=== PATIENT | male | born 1960 | race Caucasian/White ===

== ENCOUNTER 2019-10-22 12:58 | Emergency (ER) | payer OTHER, SELFPAY ==
--- NOTE | 2019-10-22 13:32 | ED.SKABFB ---
HPI - Skin/Abscess/Foreign Bdy General Chief complaint: Wound/Laceration Stated complaint: infection in R leg Time Seen by Provider: 10/22/19 13:32 Source: patient Mode of arrival: ambulatory Limitations: no limitations History of Present Illness complaint: insect bite/sting (Unsure) Onset (ago): day(s) (3) Location: RLE Severity: mild Quality: burning Pain Consistency: constant Relieving factors: none Exacerbating factors: none Associated symptoms: denies other symptoms Treatments prior to arrival: none Related Data Allergies Allergy/AdvReac Type Severity Reaction Status Date / Time No Known Drug Allergies Allergy Unknown Verified 05/22/19 07:54 Review of Systems Review of Systems: All systems reviewed & are unremarkable except as noted in HPI and below PMFSH Surgical History Surgical History (Updated 10/22/19 @ 13:55 by Fidel Lindsay MD) History of hernia surgery (Acute) Family History Family History (Updated 07/21/14 @ 07:13 by DOCTOR UNKNOWN) Mother Family history of coronary artery disease Social History Social History Smoking status: Never smoker Alcohol intake: current Exam Const: General: healthy appearing, no acute distress and alert Nutritional Appearance: well nourished Orientation/consciousness: oriented x3 HENMT: Head: normal to inspection Face and sinus: normal facial exam Mouth: Yes lip normal Eyes: Conjunctivae: conjunctivae normal Pupils: PERRL EOM: EOM intact bilaterally Neck: Neck: normal visual inspection Resp: Effort & Inspection: normal respiratory effort Auscultation: clear to auscultation bilaterally Cardio: Rate: regular rate Rhythm: regular rhythm Heart sounds: no murmurs GI: Palpation (GI): Yes soft and No tender Auscultation: normal bowel sounds Skin: General skin exam: normal color Lesions: lesion noted pustule right lateral lower leg size (4 cm), color beefy, consistency soft and fluctuant, morphology, surface indurated, warm, with discharge and with an erythematous base and tender Neuro: General: oriented x3, moves all extremities and no focal motor deficits Speech: normal speech Course Vital Signs Vital signs: Vital Signs Temperature 37.1 C 10/22/19 13:34 Pulse Rate 84 10/22/19 13:34 Respiratory Rate 18 10/22/19 13:34 Blood Pressure 162/96 H 10/22/19 13:34 Pulse Oximetry 97 10/22/19 13:34 Temperature 37.1 C 10/22/19 13:34 Pulse Rate 84 10/22/19 13:34 Respiratory Rate 18 10/22/19 13:34 Blood Pressure 162/96 H 10/22/19 13:34 Pulse Oximetry 97 10/22/19 13:34 Procedures Abscess I/D lower extremity: Date of Incision: 10/22/19 Time of Incision: 13:45 Side (if applicable): right Sedation/analgesia: none Local Anesthetic: lidocaine 1% and with epi Amount of anesthesia used (mL): 4 Technique: incised with #11 blade Irrigation: No Packing used?: none I&D Results: Pus MDM - Skin/Abscess/Foreign Bdy Differential Diagnosis Differential diagnosis: Likely abscess of skin or subcutaneous tissue and insect bites Medical Records Attestation: I reviewed the patient's medical records. Discharge Plan Discharge Clinical Impression: Abscess Patient Disposition: Home, Self-Care Condition: Stable Instructions: Antibiotic Form, Insect Bite or Sting (ED), Abscess (ED) Additional Instructions: Follow up with her primary care if not improved in 4 days. Change dressing daily. Prescriptions: New sulfamethoxazole-trimethoprim [Bactrim DS] 800-160 mg tablet 2 tablet PO Q12H 14 Days Qty: 56 RF: 0 Follow-up/Referrals: Rakesh Hebert MD [Primary Care Provider] - Time of Disposition: 14:10 Discharge Date/Time: 10/22/19 14:19
[2019-10-22 13:34] VITALS: BP 162/96; PULSE 84; RESP 18; TEMP 37.1; O2SAT 97
== END 2019-10-22 14:19 | disposition home or self-care (01) ==
PROVIDERS: Emergency Provider Emergency Medicine; PCP Family Medicine
DX: L02.415 Cutaneous abscess of right lower limb (principal)
CPT/HCPCS: 10060; 87070; 87077; 87186; 87205; 99283

== ENCOUNTER 2020-09-30 04:20 | Emergency (ER) | payer OTHER, SELFPAY ==
--- NOTE | ~2020-09-30 | XR_ITS ---
EXAMINATION: XR ankle RT min 3V INDICATION: Right ankle pain TECHNIQUE: Four views of the right ankle are obtained. COMPARISON: None available FINDINGS: No fracture is identified. Bone alignment is normal. Dorsal and plantar calcaneal enthesoph ytes are present. There is calcified atherosclerosis. IMPRESSION: 1. No acute osseous abnormality. Reviewed, dictated and finalized at location A. D ADVOCATE
[2020-09-30 04:31] VITALS: BP 120/80; PULSE 80; RESP 18; TEMP 36.4; O2SAT 96
--- NOTE | 2020-09-30 04:38 | PC.NURSE ---
PATIENT arrived 330am, Drove self & walked in--states hurt so bad at work couldn't take pain. 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 patient on cell phone laughing & talking.
[2020-09-30] MEDS: HYDROcodone/acetaminophen (*CRX) 5-325 MG TABLET 1 TAB PO (05:13)
[2020-09-30] MEDS: KETOROLAC (*BKC) 60 MG/2 ML VIAL IM (05:14)
--- NOTE | 2020-09-30 05:53 | ED.GENADULT ---
HPI - General Adult General Chief complaint: Unspecified Stated complaint: 60 YO male w/ 3 day onset on right heel PAIN. Denies rauma or injury Related Data Allergies Allergy/AdvReac Type Severity Reaction Status Date / Time No Known Drug Allergies Allergy Unknown Unknown Verified 10/29/19 11:06 Review of Systems Genitourinary: Genitourinary: Reports no additional male genitourinary complaints Musculoskeletal: Musculoskeletal: Reports as per HPI Integumentary/Breasts: Skin/Breast: Reports system reviewed and no additional complaints, except as docu Neurologic: Reports system reviewed and no additional complaints, except as documented Psychiatric: Psychiatric: Reports no additional psychiatric complaints [facility] Surgical History Surgical History History of hernia surgery Family History Family History Mother Family history of coronary artery disease Social History Social History Smoking status: Never smoker Second hand tobacco smoke exposure: No Alcohol intake: current Drinks per week: 2 Substance use: never Substance use type: does not use Gender identity (if verbalized by the patient): Male Exam Const: General: cooperative and healthy appearing Orientation/consciousness: oriented to person, oriented to place, oriented to time and patient oriented x3 HENMT: Head: normal to inspection Chest: Chest palpation & inspection: normal inspection of the chest Resp: Effort & Inspection: normal respiratory effort GI: Inspection: normal to inspection Extrem: General: normal to inspection, capillary refill normal and no calf tenderness Right lower extremity: ankle Details: achilles tendon exam abnormal Details: tenderness to palpation of achilles tendon Course Vital Signs Vital signs: Vital Signs Temperature 97.6 F 09/30/20 04:31 Pulse Rate 80 09/30/20 04:31 Respiratory Rate 18 09/30/20 04:31 Blood Pressure 120/80 09/30/20 04:31 Pulse Oximetry 96 09/30/20 04:31 Temperature 97.6 F 09/30/20 04:31 Pulse Rate 80 09/30/20 04:31 Respiratory Rate 18 09/30/20 04:31 Blood Pressure 120/80 09/30/20 04:31 Pulse Oximetry 96 09/30/20 04:31 Medical Decision Making Vital Signs Vital Signs: Vital Signs Temperature 97.6 F 09/30/20 04:31 Pulse Rate 80 09/30/20 04:31 Respiratory Rate 18 09/30/20 04:31 Blood Pressure 120/80 09/30/20 04:31 Pulse Oximetry 96 09/30/20 04:31 Temperature 97.6 F 09/30/20 04:31 Pulse Rate 80 09/30/20 04:31 Respiratory Rate 18 09/30/20 04:31 Blood Pressure 120/80 09/30/20 04:31 Pulse Oximetry 96 09/30/20 04:31 Critical Care Time Critical Care Time Critical Care Time: No Discharge Plan Discharge Clinical Impression: Achilles tendinitis of right lower extremity Patient Disposition: Home, Self-Care Condition: Improved Instructions: Antibiotic Form Additional Instructions: F/U with OMD in 2-3 days for steroid injection Prescriptions: New naproxen 500 mg tablet 500 mg PO BID PRN (Reason: pain) Qty: 20 RF: 0 Follow-up/Referrals: UNKNOWN,DOCTOR [Primary Care Provider] - Stand Alone Forms: Work/School Release IP Time of Disposition: 05:58
[2020-09-30 06:02] VITALS: BP 120/78; PULSE 70; RESP 18; TEMP 36.8; O2SAT 95
== END 2020-09-30 06:03 | disposition home or self-care (01) ==
PROVIDERS: Emergency Provider Family Medicine
DX: M76.61 Achilles tendinitis, right leg (principal)
CPT/HCPCS: 73610; 96372; 99283; A9270; J1885

== ENCOUNTER 2020-10-23 14:30 | Outpatient (CLI) | payer OTHER, SELFPAY ==
--- NOTE | ~2020-10-23 | XR_ITS ---
EXAMINATION: XR knee LT 3V DATE: 10/23/2020 14:55 INDICATION: Left knee pain. TECHNIQUE: 3 views of left knee were obtained. COMPARISON: None. FINDINGS: Bone alignment is normal. No fracture. There is mild osteoarthritis of medial and patellofe moral compartments. No knee joint effusion. IMPRESSION: 1. Mild left knee osteoarthritis. Reviewed, dictated and finalized at location A. 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
== END 2020-10-23 14:31 | disposition home or self-care (01) ==
PROVIDERS: PCP Family Medicine; Visit Provider Nurse Practitioner Family
DX: M17.11 Unilateral primary osteoarthritis, right knee (principal)
CPT/HCPCS: 73562

== ENCOUNTER 2021-08-27 06:08 | Observation (INO) | payer OTHER, SELFPAY ==
[2021-08-27] VITALS (30 sets, daily range): BP systolic 114–186; BP diastolic 66–109; PULSE 42–98; RESP 14–27; TEMP 36.4–36.9; O2SAT 91–100; BMI 29.9
--- NOTE | ~2021-08-27 | XR_ITS ---
XR chest 1V portable DATE: 08/27/2021 06:30 INDICATION: Chest pain, chest pressure for 2 days. TECHNIQUE: Portable upright AP chest on 08/2021 at 0621 hours COMPARISON: 02/22/2013 PA and lateral chest FINDINGS: Normal heart size. Mild aortic unfolding. No hilar or mediastinal enlargement is evident. The right cardiac margin is not well-defined, which might indicate middle lobe infiltrate or atelecta sis. PA and lateral chest radiographs are recommended. The lungs otherwise appear clear of infiltrate or consolidation. No pleural effusion or pulmonary vas cular congestion or pneumothorax. Degenerative spurring of the thoracic spine. IMPRESSION: Obscured right cardiac margin, which might indicate middle lobe infiltrate or atelectasis ; PA and lateral chest radiographs are recommended Reviewed, dictated and finalized at location A. IMPRESSION: Obscured right cardiac margin, which might indicate middle lobe inf iltrate or atelectasis; PA and lateral chest radiographs are recommended
--- NOTE | ~2021-08-27 | CT_ITS ---
EXAMINATION: CTA chest PE protocol DATE: 08/27/2021 09:02 INDICATION: Chest pain. Elevated d-dimer. TECHNIQUE: Computed tomography angiography (CTA) of the chest was performed with 100 mL Omnipaque-350 intravenous contrast timed to evaluate the pulmonary arteries. Coronal maximum intensity projection 3D-reconstructions were created by the technologist. Automated exposure control and iterative reconst ruction technique were employed. Exam dose: 714.78 mGy-cm total exam DLP. COMPARISON: 08/2021 portable AP chest FINDINGS: There is diagnostic contrast enhancement of the pulmonary arteries and no evidence of pulmo nary embolism. No thoracic aortic aneurysm or dissection. Heart size is within normal range. No pericardial or pleural effusion. No hilar or mediastinal mass lesion or lymphadenopathy. There is mild infiltrate or atelectasis in the medial paraspinal right lower lobe. The lungs are othe rwise clear. Normal morphology of the adrenal glands. Left parapelvic renal cysts. Small sliding hiatal hernia. Diffuse idiopathic skeletal hyperostosis of the T7-T10 thoracic spine. IMPRESSION: Mild infiltrate or atelectasis in the paraspinal medial right lower lobe No evidence of pulmonary embolism Reviewed, dictated and finalized at Location [facility]. Reviewed, dictated and finalized at location A. IMPRESSION: Mild infiltrate or atelectasis in the paraspinal medial right lowe r lobe No evidence of pulmonary embolism
--- NOTE | 2021-08-27 06:10 | ECG_ITS ---
Measurements Intervals [place] Rate: 92 P: 145 MS: 164 QRS: 197 QRSD: 127 T: 182 QT: 369 QTc: 458 Interpretive Statements SINUS RHYTHM ARM LEADS REVERSED INCOMPLETE RIGHT BUNDLE BRANCH BLOCK BORDERLINE R WAVE PROGRESSION, ANTERIOR LEADS BORDERLINE T WAVE ABNORMALITY- INFERIOR LEADS BORDERLINE ECG Electronically Signed On 08-27-2021 15:26:01 CDT by Otoniel Fink D.O.
[2021-08-27 06:41] LABS: Basophils Percent Auto 0.6 % (0.2-1.2); Eosinophils Absolute Auto 0.1 K/mm3 (0-0.3); Eosinophils Percent Auto 1.9 % (0-4.4); Hematocrit 45.7 % (42.0-52.0); Hemoglobin 15.8 g/dL (14.0-18.0); Immature Granulocyte Absolute 0.01 K/mm3 (0.00-0.031); Immature Granulocyte Percent A 0.2 % (0-0.5); Lymphocytes Absolute Auto 1.77 K/mm3 (0.9-3.2); Lymphocytes Percent Auto 37.5 % (18.3-44.2); Mean Corpuscular HGB Conc 34.6 g/dl (32-36); Mean Corpuscular Hemoglobin 31.7 pg (26-34); Mean Corpuscular Volume 91.8 fl (80-100); Mean Platelet Volume 9.3 fl (7.4-10.4); Monocytes Absolute Auto 0.4 K/mm3 (0.1-0.6); Monocytes Percent Auto 7.4 % (2.6-8.5); Neutrophils Absolute Auto 2.5 K/mm3 (1.3-6.7); Neutrophils Percent Auto 52.4 % (45.5-73.1); Platelet Count Result 251 k/mm3 (150-375); Red Blood Count 4.98 M/mm3 (4.6-6.20); Red Cell Distribution Width 12.4 % (11.5-14.5); White Blood Count 4.7 K/mm3 (4.5-10.0)
[2021-08-27 06:50] LABS: Alanine Aminotransferase 39 U/L (4-50); Albumin Level 4.7 g/dL (3.5-5.1); Alkaline Phosphatase 64 U/L (38-126); Anion Gap 11 mmol/L (8-16); Aspartate Amino Transferase 33 U/L (17-59); Bilirubin,Total 0.7 mg/dL (0.2-1.3); Blood Urea Nitrogen 19 mg/dL (9-20); Calcium 8.8 mg/dL (8.4-10.2); Carbon Dioxide 23 mmol/L (22-30); Chloride 103 mmol/L (98-107); Estimated CRCL calculation 81 ml/min; Estimated Glomerular Filt Rate > 60; Glucose 230 mg/dL (65-110); Lipase 117 U/L (23-300); Potassium 3.8 mmol/L (3.4-5.0); Sodium 137 mmol/L (137-145)
[2021-08-27 06:57] LABS: Prothrombin Time 12.6 Seconds (11.1-14.7)
[2021-08-27 06:58] LABS: Partial Thromboplastin Time 30.9 SECONDS (22.3-36.8)
[2021-08-27 07:01] LABS: Troponin I < 0.012 ng/mL (0.000-0.034)
--- NOTE | 2021-08-27 07:16 | PC.NURSE ---
pt using urinal at bedside. cp 04/02
--- NOTE | 2021-08-27 07:46 | ED.GENADULT ---
HPI - General Adult General Chief complaint: Chest Pain Stated complaint: Chest pain Time Seen by Provider: 08/27/21 07:05 Source: patient History of Present Illness HPI narrative: Patient is a 61 y/o male complaining of left sided chest pain starting 2 hours ago. He describes his pain as a pressure and rates it as 5/10. There is no alleviating or exacerbating factor. His pain radiates to left shoulder. 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 He also has some nausea, SOB and sweating feeling. He had a similar episode of chest pain yesterday which resolved a 2 hours. Related Data Home Medications Medication Instructions Recorded Confirmed No Home Medications 10/24/20 Allergies Allergy/AdvReac Type Severity Reaction Status Date / Time No Known Drug Allergies Allergy Unknown Unknown Verified 08/27/21 06:26 Review of Systems Constitutional: Constitutional: Denies chills, Reports excessive sweating, Denies fever(s), Denies headache(s) and Denies weakness Eyes: Eyes: Denies blurry vision ENT: Denies headache(s) and Denies neck pain Cardiovascular: Cardiovascular: Reports chest pain and Reports dyspnea Respiratory: Respiratory: Denies cough and Reports dyspnea Gastrointestinal: Gastrointestinal: Denies abdominal pain, Denies diarrhea, Reports nausea and Denies vomiting Genitourinary: Genitourinary: Denies hematuria and Denies dysuria Musculoskeletal: Musculoskeletal: Denies back pain and Denies neck pain Neurologic: Denies headache(s) and Denies weakness PMF Surgical History Surgical History History of hernia surgery Family History Family History Mother Family history of coronary artery disease Social History Social History Smoking status: Never smoker Second hand tobacco smoke exposure: No Alcohol intake: current Drinks per week: 2 Substance use: never Substance use type: does not use Gender identity (if verbalized by the patient): Male Exam Const: General: no acute distress and well developed Orientation/consciousness: oriented to person, oriented to place, oriented to time and patient oriented x3 HENMT: Head: normocephalic Ears: external ears normal General nose exam: Normal external nose present Eyes: General: appearance normal, both eyes and all related structures Conjunctivae: conjunctivae normal Neck: Neck: normal visual inspection and full ROM Chest: Chest palpation & inspection: normal inspection of the chest and no tenderness Resp: Effort & Inspection: normal respiratory effort Auscultation: clear to auscultation bilaterally Cardio: Rate: regular rate Rhythm: regular rhythm GI: GI Palp: No abdominal tenderness and Yes Soft to palpation Skin: General skin exam: normal color and turgor normal Neuro: General: oriented to person, oriented to place, oriented to time and patient oriented x3 Cognition (Neuro): normal cognition Extrem: General: normal to inspection, full ROM and no pedal edema Psych: Appearance: grossly normal Mental Status: mental status grossly normal Affect: normal affect Course Consultations Consultation #1: Discussed with Amanda (cardiology), who agrees to admit. Date: 08/27/21 Time: 11:42 Vital Signs Vital signs: Vital Signs Temperature 36.9 C 08/27/21 06:16 Pulse Rate 96 08/27/21 06:16 Respiratory Rate 20 08/27/21 06:16 Blood Pressure 186/109 H 08/27/21 06:16 Pulse Oximetry 96 08/27/21 06:16 Temperature 36.9 C 08/27/21 06:16 Pulse Rate 79 08/27/21 12:03 Respiratory Rate 17 08/27/21 11:45 Blood Pressure 131/86 08/27/21 08:16 Pulse Oximetry 97 08/27/21 11:45 Medical Decision Making Vital Signs Vital Signs: Vital Signs Temperature 36.9 C 08/27/21 06:16 Pulse Rate 96 08/27/21 06:16 Respiratory Rate 20 08/27/21 06:16
[2021-08-27 08:04] LABS: D Dimer 0.66 ug/mL (<0.48)
[2021-08-27 09:43] LABS: Troponin I < 0.012 ng/mL (0.000-0.034)
[2021-08-27] MEDS: METOPROLOL TARTRATE 50 MG TAB (12:03)
[2021-08-27] MEDS: ASPIRIN 81 MG CHEWABLE TABLET 324 MG PO (12:03)
[2021-08-27 13:04] LABS: Troponin I < 0.012 ng/mL (0.000-0.034)
--- NOTE | 2021-08-27 13:50 | ADMGEN ---
This patient, John Hernandez, [facility] Patient/family oriented to hospital policies and general routines including ID bracelet, bed and alarms, visiting hours, pain management, procedures, bathroom and other care routines, personal items, smoking policy, room service/diet, and visiting hours. Information on how to activate the Rapid Response Team has been discussed. Patient/Family are encouraged to report perceived risks to care and to ask questions if they do not understand what they are told or what they should do.
--- NOTE | 2021-08-27 14:35 | PM.CNCAR ---
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 Pain lasted a couple of hours and was relieved by rest. He had a recurrence of pain this morning while driving to work with some associated nausea. This prompted his presentation to the hospital. In the emergency department his initial troponin was negative an EKG did not have any acute ST or T-wave changes. He was given a full-dose aspirin. He was also given metoprolol as he was found to be hypertensive with a systolic blood pressure in the 180s. Currently he is not experiencing any chest pain. Serial troponins have been negative. He does have some risk factors for coronary disease including family history and age. Moderately suspicious sounding history. Will plan for exercise stress test tomorrow Check lipid panel Further recommendations to follow stress test OK to transfer to [facility] History of Present Illness History of Present Illness Consult date/time: 08/27/21 14:35 Requesting physician: Luzma Owen MD Consult reason: chest pain Reason For Visit: Chest pain Narrative: Mr. Hernandez is a patient who we are seeing at the request of Dr. Owen for chest pain. This is a 61-year-old male with no significant medical history who presented to the emergency room today following an episode of chest pain. He says that he was in his car driving to work when he began to experience some substernal chest pain. He says that he also felt nauseous at that time. He tells me that he also had some chest pain last night after he finished doing some tile work. He says that he has had similar experiences with chest discomfort following activity but has never been evaluated in the past. Last nights episode of chest discomfort lasted for a couple of hours and was about of 5/10 on a pain scale. He describes the pain is a tightness or heaviness. He did not do anything in particular to relieve the pain aside from rest. The pain does not radiate to his arm or jaw. He did have some shortness of breath last night but he thinks that this is related to the fact that he was exerting himself. Over the past several months he does note that he has been experiencing more fatigue/lack of energy. Today, his chest pain had nearly resolved by the time that he arrived to the emergency department. He is currently not experiencing any chest pain. He denies any history of heart problems or any type of cardiac workup. He also tells me that he does not regularly follow with a primary care doctor. Review of Systems Review of Systems: All systems reviewed & are unremarkable except as noted in HPI and below Constitutional: Constitutional: Reports fatigue, Reports lethargy and Denies weakness Eyes: Eyes: Denies change in vision ENT: Reports Normal hearing present Cardiovascular: Cardiovascular: Reports chest pain, Denies diaphoresis, Denies pedal edema, Denies leg edema, Denies lightheadedness and Denies palpitations Respiratory: Respiratory: Denies dyspnea and Reports dyspnea on exertion Gastrointestinal: Gastrointestinal: Denies melena and Denies hematochezia Genitourinary: Genitourinary: Denies dysuria Musculoskeletal: Musculoskeletal: Denies back pain and Denies neck pain Integumentary/Breasts: Skin/Breast: Denies wounds Neurologic: Denies headache(s) Psychiatric: Psychiatric: Denies anxiety and Denies depression Endocrine: Endocrine: Reports fatigue Hematologic/Lymphatic: Hematologic/Lymphatic: Denies easy bleeding and Denies easy bruising PMFSH Surgical History Surgical History History of hernia surgery Family History Family History (Reviewed 08/27/21 @ 15:09 by
--- NOTE | 2021-08-27 15:46 | PC.NURSE ---
Cardiology called and stated they will be doing Stress test tomorrow (08/28) at 0900.
--- NOTE | 2021-08-27 16:09 | PC.NURSE ---
meal tray ordered for patient and pt is up eating tray now.
[2021-08-27 16:23] LABS: Cholesterol 245 mg/dL (0-200); HDL Direct 51 mg/dL; Triglycerides 143 mg/dL (<150)
[2021-08-27 16:33] LABS: LDL Cholesterol Direct 167 mg/dL
--- NOTE | 2021-08-27 17:35 | PC.NURSE ---
This RN faxed down [facility] and called to notify that Raina can call when ready for report.
--- NOTE | 2021-08-27 18:06 | PC.NURSE ---
This patient, John Hernandez, was [facility] from [facility] 08/27/21 at 1806. Patient/family oriented to unit policies and routines
[2021-08-28] VITALS: BP 138/87; PULSE 45; PULSE 46; RESP 16; TEMP 36.5; O2SAT 100
--- NOTE | 2021-08-28 | EST_ITS ---
Patient Info Name: John Hernandez Age: 61 years : 1960 Gender: Male Ht: 71 in Wt: 214 lbs BSA: 2.23 m2 Heart Rhythm: Sinus Rhythm Exam Date: 08/28/2021 8:50 AM Exam Location: [facility] Stress Patient Status: Outpatient Admit Date: 08/27/2021 Staff Ordering Physician: Amanda Ferreira Attending Provider: SAM HERNANDEZ Exam Type: CA stress test treadmill Study Info Indications R07.89 - Other chest pain An exercise stress test was performed. Summary 1. Normal ST segment response to stress. 2. Hypertensive blood pressure response. 3. No exercise-induced chest tightness/pressure or pain. 4. Above average exercise capacity for age. Protocol: [facility] Stress ECG Details Stage: REST Duration (min): 0 min : 53 sec Speed (mph): 0.0 Grade (%): 0 HR (bpm): 58 SBP (mmHg): 151 DBP (mmHg): 98 METS: --- Stage: REST Duration (min): 6 min : 53 sec Speed (mph): 0.0 Grade (%): 0 HR (bpm): 57 SBP (mmHg): 151 DBP (mmHg): 98 METS: --- Stage: STAGE 1 Duration (min): 1 min : 0 sec Speed (mph): 1.7 Grade (%): 10 HR (bpm): 101 SBP (mmHg): 151 DBP (mmHg): 98 METS: --- Stage: STAGE 1 Duration (min): 2 min : 0 sec Speed (mph): 1.7 Grade (%): 10 HR (bpm): 98 SBP (mmHg): 151 DBP (mmHg): 98 METS: --- Stage: STAGE 1 Duration (min): 3 min : 0 sec Speed (mph): 1.7 Grade (%): 10 HR (bpm): 98 SBP (mmHg): 203 DBP (mmHg): 98 METS: --- Stage: STAGE 2 Duration (min): 1 min : 0 sec Speed (mph): 2.5 Grade (%): 12 HR (bpm): 108 SBP (mmHg): 203 DBP (mmHg): 98 METS: --- Stage: STAGE 2 Duration (min): 2 min : 0 sec Speed (mph): 2.5 Grade (%): 12 HR (bpm): 112 SBP (mmHg): 211 DBP (mmHg): 104 METS: --- Stage: STAGE 2 Duration (min): 3 min : 0 sec Speed (mph): 2.5 Grade (%): 12 HR (bpm): 120 SBP (mmHg): 211 DBP (mmHg): 104 METS: --- Stage: STAGE 3 Duration (min): 1 min : 0 sec Speed (mph): 3.4 Grade (%): 14 HR (bpm): 123 SBP (mmHg): 142 DBP (mmHg): 94 METS: --- Stage: STAGE 3 Duration (min): 2 min : 0 sec Speed (mph): 3.4 Grade (%): 14 HR (bpm): 132 SBP (mmHg): 249 DBP (mmHg): 105 METS: --- Stage: STAGE 3 Duration (min): 2 min : 59 sec Speed (mph): 3.4 Grade (%): 14 HR (bpm): 141 SBP (mmHg): 251 DBP (mmHg): 107 METS: --- Stage: RECOVERY Duration (min): 1 min : 0 sec Speed (mph): 0.0 Grade (%): 0 HR (bpm): 108 SBP (mmHg): 251 DBP (mmHg): 107 METS: --- Stage: RECOVERY Duration (min): 2 min : 0 sec Speed (mph): 0.0 Grade (%): 0 HR (bpm): 90 SBP (mmHg): 251 DBP (mmHg): 107 METS: --- Stage: RECOVERY Duration (min): 3 min : 0 sec Speed (mph): 0.0
[2021-08-28 04:00] VITALS: BP 126/79; PULSE 42; PULSE 49; RESP 18; TEMP 36.6; O2SAT 97
[2021-08-28 08:00] VITALS: BP 144/83; PULSE 48; PULSE 67; RESP 18; TEMP 36.4; O2SAT 97
--- NOTE | 2021-08-28 10:46 | PM.DS ---
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 Pain lasted a couple of hours and was relieved by rest. He had a recurrence of pain this morning while driving to work with some associated nausea. This prompted his presentation to the hospital. In the emergency department his initial troponin was negative an EKG did not have any acute ST or T-wave changes. He was given a full-dose aspirin. He was also given metoprolol as he was found to be hypertensive with a systolic blood pressure in the 180s. Currently he is not experiencing any chest pain. Serial troponins have been negative. He does have some risk factors for coronary disease including family history and age. Moderately suspicious sounding history. No chest pain since admission Stress test negative for any exercise-induced chest pain or any ischemic ST changes in response to exercise stress Recommend ASA 81mg daily (intermediate ASCVD risk). Discussed initiating a moderate dose statin based on ASCVD risk score, but patient would prefer to try diet and exercise first and have lipids checked again by PCP in several months. I counseled him on heart healthy diet and types of foods to avoid. OK for discharge home with follow up in our office and with PCP DS: Summary Hospital Course Hospital Course: Presented to The emergency department with a complaint of chest pain. Patient was no longer having chest pain by the time he reached the emergency room. EKG did not show any ischemic looking ST or T segment changes. Serial troponins were negative. Patient has not had any recurrence of chest pain since his admission to the hospital. This morning, exercise stress test was performed and was negative for any exercised-induced chest pain. No ischemic changes on exercise stress EKG. He is stable for discharge home today with follow up at his primary care doctor's office as well as in our office. Time Spent with Patient Time attestation: Total time spent providing and/or coordinating discharge services: Time spent: Greater than 30 minutes Exam Const: General: comfortable and no acute distress Other: Healthy-appearing male. Alert oriented. Pleasant and cooperative. HENMT: Head: normal to inspection Ears: hearing grossly normal bilaterally Mouth: Yes Normal oral and palatal mucosa present Eyes: General: appearance normal, both eyes and all related structures Neck: Neck: supple and no JVD Resp: Effort & Inspection: normal respiratory effort Auscultation: clear to auscultation bilaterally Cardio: Rate: bradycardic Rhythm: regular rhythm Heart sounds: no murmurs GI: Auscultation: normal bowel sounds Skin: General skin exam: normal color Wounds: no wounds Neuro: Cranial nerves: Yes Normal hearing present Cognition (Neuro): normal cognition Speech: normal speech Extrem: General: normal to inspection, no edema and no pedal edema Psych: Mental Status: mental status grossly normal DS: Data Data Completed and Pending Labs on day of discharge: Labs from last 24 hours 08/27/21 08/27/21 16:01 12:01 Troponin I < 0.012 Triglycerides 143 Cholesterol 245 H LDL Cholesterol Direct 167 HDL Direct 51 Discharge Plan Discharge Consulting providers: Manuel Cuevas Discharging Clinician: Amanda Ferreira Patient Disposition: Home, Self-Care Activity: no preference Diet: heart healthy Discharge Instructions: [facility]
[2021-08-28 12:00] VITALS: BP 134/81; PULSE 60; RESP 18; TEMP 36.4; O2SAT 100
== END 2021-08-28 12:10 | disposition home or self-care (01) ==
LOC: ANHED 11:44 → ANHCPC 12:40 → ANH2MED 19:11
PROVIDERS: Emergency Medicine; Nurse Practitioner; Admitting Provider Internal Medicine Interventional Cardiology; Emergency Provider Emergency Medicine; PCP Family Medicine; Visit Provider Internal Medicine Interventional Cardiology
DX: R07.9 Chest pain, unspecified (principal); R06.02 Shortness of breath
CPT/HCPCS: 36415; 71045; 71275; 80053; 80061; 83690; 84484; 85025; 85380; 85610; 85730; 93005; 93017; 99285; A9270; G0378; Q9967

== ENCOUNTER 2021-08-29 14:24 | Outpatient (CLI) | payer OTHER, SELFPAY ==
[2021-08-29 17:37] LABS: Hemoglobin A1C 5.8 % (<5.7)
== END 2021-08-29 14:25 | disposition home or self-care (01) ==
LOC: ANHLAB 14:25
PROVIDERS: PCP Family Medicine; Visit Provider Nurse Practitioner Family
DX: R73.01 Impaired fasting glucose (principal)
CPT/HCPCS: 36415; 83036

== ENCOUNTER 2023-02-13 16:02 | Outpatient (CLI) | payer OTHER, SELFPAY ==
--- NOTE | ~2023-02-13 | XR_ITS ---
XR foot LT min 3V DATE: 02/13/2023 16:22 INDICATION: Left lateral foot pain. Slight foot deformity. TECHNIQUE: 4 views COMPARISON: None FINDINGS: Moderate plantar and mild posterior calcaneal enthesopathy. There is moderate osteoarthritic change at the first metatarsophalangeal joint. There is hallux valgu s and bunion deformity. No fracture, dislocation, periosteal reaction or bone destruction or erosive change. IMPRESSION: Plantar and posterior calcaneal enthesopathy Hallux valgus and bunion deformity Mild osteoarthritis at first metatarsophalangeal joint Reviewed, dictated and finalized at location A.
== END 2023-02-13 16:03 | disposition home or self-care (01) ==
PROVIDERS: PCP Family Medicine; Visit Provider Physician Assistant
DX: M77.32 Calcaneal spur, left foot (principal); M20.12 Hallux valgus (acquired), left foot; M21.612 Bunion of left foot; M19.072 Primary osteoarthritis, left ankle and foot
CPT/HCPCS: 73630

== ENCOUNTER 2024-01-09 14:54 | Outpatient (CLI) | payer OTHER, SELFPAY ==
--- NOTE | ~2024-01-09 | XR_ITS ---
EXAM: XR shoulder RT min 2V DATE: 01/09/2024 15:07 HISTORY: M25.511 - Pain in right shoulder X 1 YEAR . COMPARISON: None available. FINDINGS: Normal mineralization. No fracture or dislocation. No lytic or blastic lesion. Moderate AC joint and glenohumeral joint degenerative change. Inferior clavicular enthesopathy. Mild superior mi gration of humeral head. No erosion or periosteal change. Soft tissues within normal limits. IMPRESSION: Moderate AC joint and glenohumeral joint osteoarthritis. Additional findings suggestive o f rotator cuff pathology. Reviewed, dictated and finalized at location K. EDIENT MIXER IMPRESSION: Moderate AC joint and glenohumeral joint osteoarthritis. Additional findings suggestive of rotator cuff pathology.
== END 2024-01-09 14:55 | disposition home or self-care (01) ==
LOC: ANHIMG 14:58
PROVIDERS: PCP Family Medicine; Visit Provider Physician Assistant
DX: M19.011 Primary osteoarthritis, right shoulder (principal)
CPT/HCPCS: 73030